=== PATIENT | female | born 1980 | race Caucasian/White ===

== ENCOUNTER 2022-02-23 10:31 | Emergency (ER) | payer SELFPAY ==
[2022-02-23 10:37] VITALS: BP 135/89; PULSE 75; RESP 20; TEMP 36.8; O2SAT 99; BMI 48.2
--- NOTE | 2022-02-23 11:06 | USR_ITS ---
PROCEDURE INFORMATION: Exam: US Duplex Artery and Vein of the Abdominal and/or Reproductive Organs. Complete Ovaries Exam date and time: 02/23/2022 11:53 AM Age: 41 years old Clinical indication: Pain; Dysmenorrhea; Additional info: Heavy bleeding with left pelvic pain TECHNIQUE: Imaging protocol: Real-time duplex ultrasound scan of the arterial and venous flow with color Doppler flow and spectral waveform analysis with image documentation. Complete duplex exam focused on the ovaries. Duplex exam was added to evaluate for torsion and other vascular conditions. COMPARISON: No relevant prior studies available. FINDINGS: Right ovary/adnexa: Normal duplex of the ovary. Normal Doppler waveforms and color flow. Arterial and venous flow are normal. No evidence of ovarian torsion. Left ovary/adnexa: Normal duplex of the ovary. Normal Doppler waveforms and color flow. Arterial and venous flow are normal. No evidence of ovarian torsion. PROCEDURE INFORMATION: Exam: US Pelvis, Transvaginal Exam date and time: 02/23/2022 11:53 AM Age: 41 years old Clinical indication: Pain; Dysmenorrhea; Additional info: Heavy bleeding with left pelvic pain TECHNIQUE: Imaging protocol: Real-time transvaginal pelvic ultrasound with image documentation. Transvaginal imaging was used for better evaluation of the endometrium, adnexa, and/or cervix. COMPARISON: No relevant prior studies available. FINDINGS: Uterus: Endometrial stipe is thick and heterogeneous measuing 1.3 cm. Probable clots/debris in endrometrial canal. Myometrium is appropriate in appearance. Right ovary/adnexa: Normal. No mass. Normal ovarian blood flow. Left ovary/adnexa: Normal. No mass. Normal ovarian blood flow. Intraperitoneal space: No free fluid. US/US pelvic complete* [id number] IMPRESSION: Normal ovarian arterial and venous vascular flow. No evidence ovarian torsion. IMPRESSION: Endometrial stipe is thick and heterogeneous measuing 1.3 cm. Probable clots/debris in endrometrial canal.
--- NOTE | 2022-02-23 11:07 | W.ED.FEMALGU ---
HPI - Female Genitourinary General: Chief complaint: Vaginal Bleeding Stated complaint: abdominal pain / bleeding Time Seen by Provider: 02/23/22 10:47 Source: patient Mode of arrival: ambulatory Limitations: no limitations History of Present Illness: This patient presents to our emergency department because of heavy vaginal bleeding and pelvic pain and cramping. She states she has had a continuous or almost continuous menstrual period for approximately 3 weeks. She states that she was having some intermittent cramping with this menstrual period but over the past 48 to 72 hours she has had increasing amount of cramping and discomfort. She states that she has had irregular periods all her life but is never had any episode like this. She denies any history of to [facility]. 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 She has never had any extensive work-up for menorrhagia or metromenorrhagia. She states that she was seen by transportation planning technician last year who was considering a D&C but has not completed that process. She denies any history of pelvic surgeries, STDs etc. She is occasionally uses tobacco. She has had a prior cholecystectomy. She denies any other bleeding history, bleeding dyscrasias etc. She is normally in good health has had no fevers or chills nausea vomiting or diarrhea. Pertinent past history: prior miscarriages Quality of pain: cramping Consistency: intermittent and progressively worsening Vaginal bleeding: moderate Exacerbating factors: none Relieving factors: none Associated symptoms: Deny headache(s), nausea or syncope Date of Last Menstrual Period: 02/02/22 Review of Systems Const: Denies: fever(s), chills or body aches Eyes: Denies: change in vision or blurry vision ENMT: Denies: throat pain or odynophagia Card: Denies: chest pain, palpitations, irregular heart rhythm, edema, syncope or pre-syncope Resp: Denies: dyspnea, productive cough or non-productive cough GI: Denies: nausea, vomiting or diarrhea : Reports: vaginal bleeding and pelvic pain; Denies: dysuria or urinary frequency Musc: Denies: neck pain, back pain, extremity pain or extremity swelling Skin/Breast: Denies: rash, pruritus or erythema Neuro: Denies: headache(s), numbness in extremities or weakness in extremities Endo: Denies: polyuria or polydipsia Bo/Lymph: Denies: easy bruising or easy bleeding PFSH ED PFSH: Social History Smoking and tobacco status: current every day smoker Female Reproductive History: Date of last menstrual period: 02/02/22 Physical Exam Narrative: EXAM NARRATIVE: She is alert and cooperative and answers questions in a goal-directed fashion. Const: COMMON NORMALS: no acute distress, patient oriented x3 and alert NUTRITIONAL APPEARANCE: overweight HENMT: COMMON NORMALS: normocephalic, Normal nasal mucous membranes and turbinates present and moist oral mucous membranes HEAD & SCALP: normocephalic NOSE: Normal nasal mucous membranes and turbinates present Eye: COMMON NORMALS: Equal, round and reactive pupils present, EOMs intact bilaterally, conjunctivae normal and no scleral icterus CONJUNCTIVA: Yes conjunctivae normal PUPIL: Yes Equal, round and reactive pupils present Neck/C-Spine: COMMON NORMALS: full ROM, supple, no JVD and No carotid bruits Chest: COMMONS NORMALS: normal inspection of the chest Resp: COMMON NORMALS: normal respiratory effort, No use of accessory muscles and clear to auscultation bilaterally AUSCULTATION: clear to auscultation bilaterally Cardio: COMMON NORMALS: no JVD, regular rate, No murmurs present (Cardio) and Peripheral pulses 2+ throughout RATE: regular rate PERIPHERAL PULSES: Peripheral pulses 2+ throughout GI: COMMON NORMALS: Soft to palpation PALPATION: Yes Soft to palpation, No Guarding due to palpation present (GI), No Rebound tenderness present and Yes Other GI palpation findings present (Tenderness in the left lower pelvic region. None in the right. No rebound) : COMMON NORMALS: Yes no CVA tenderness BLADDER/KIDNEY EXAM: Yes no CVA tenderness Back/Pelvis: COMMON NORMALS: no CVA tenderness, thoracic and lumbar spine normal to inspection and no thoracic nor lumbar tenderness Extremity: COMMON NORMALS: normal to inspection, capillary refill normal, no joint enlargement and no calf tenderness Neuro: COMMON NORMALS: patient oriented x3, moves all extremities and no sensory deficits noted SENSORIUM/ORIENTATION: Yes alert Psych: COMMON NORMALS: mental status grossly normal Course Reevaluation(s): Reevaluation #1: Patient currently clinically stable. Laboratories and ultrasound are reassuring without any evidence of ongoing emergency pathology. Vital Signs: Vital signs: Vital Signs Temperature 98.2 F 02/23/22 10:37 Pulse Rate 75 02/23/22 10:37 Respiratory Rate 20 H 02/23/22 10:37 Blood Pressure 135/89 02/23/22 10:37 Pulse Oximetry 99 02/23/22 10:37 MDM - Female Medical Decision Making Patient with abnormal vaginal bleeding. We will go ahead and begin symptomatic treatment as she is clinically stable without any acute pathology at this time. We will start her on suppressive Provera and have her follow-up with her transportation planning technician. We also discussed return precautions. Stable at this time. Medical Records I reviewed the patient's medical records. Lab Data : 02/23/22 11:28 02/23/22 11:28 Radiology Impressions Pelvis Ultrasound 02/23/22 11:06 IMPRESSION: Normal ovarian arterial and venous vascular flow. No evidence ovarian torsion. IMPRESSION: Endometrial stipe is thick and heterogeneous measuing 1.3 cm. Probable clots/debris in endrometrial canal. Laboratory Results WBC 6.0 10^3/uL (4.0-10.0) 02/23/22 11:28 RBC 4.09 10^6/uL (4.1-5.3) L 02/23/22 11:28 Hgb 11.2 g/dL (11.5-15.3) L 02/23/22 11:28 Hct 35.1 % (37.0-47.0) L 02/23/22 11:28 MCV 85.8 fl (81-99) 02/23/22 11:28 MCH 27.4 pg (28.0-34.0) L 02/23/22 11:28 MCHC 31.9 g/dL (30.0-36.0) 02/23/22 11:28 RDW 15.5 % (12.1-15.1) H 02/23/22 11:28 Plt Count 235 10^3/cmm (130-400) 02/23/22 11:28 MPV 10.8 fL (7.4-10.4) H 02/23/22 11:28 Neut % (Auto) 63.7 % 02/23/22 11:28 Lymph % (Auto) 27.3 % 02/23/22 11:28 [place] % (Auto) 6.4 % 02/23/22 11:28 Eos % (Auto) 1.7 % 02/23/22 11:28 Baso % (Auto) 0.7 % 02/23/22 11:28 Neut # (Auto) 3.82 10^3/uL (1.8-7.7) 02/23/22 11: Lymph # (Auto) 1.6 10^3/uL (0.8-4.8) 02/23/22 11:28 [place] # (Auto) 0.4 10^3/uL (0.2-0.9) 02/23/22 11: Eos # (Auto) 0.1 10^3/uL (0.0-0.8) 02/23/22 11:28 Baso # (Auto) 0.0 10^3/uL (0.0-0.1) 02/23/22 11: Nucleated RBC % (auto) 0 % 02/23/22 11: Nucleated RBCs # 0.0 /100WBC 02/23/22 11:28 Sodium 136 mmol/L (136-145) 02/23/22 11:28 Potassium 4.4 mmol/L (3.5-5.1) 02/23/22 11:28 Chloride 103 mmol/L (98-107) 02/23/22 11:28 Carbon Dioxide 23 mmol/L (22-29) 02/23/22 11:28 Anion Gap 14.4 (5-19) 02/23/22 11:28 BUN 11 mg/dL (6-20) 02/23/22 11:28 Creatinine 0.5 mg/dL (0.5-0.9) 02/23/22 11:28 GFR Calculation 137.4 mL/min (90-130) H 02/23/22 11:28 Glucose 104 mg/dL (65-115) 02/23/22 11:28 Calculated Osmolality 282 mOsm/kg (285-295) L 02/23/22 11:28 Calcium 9.1 mg/dL (8.5-10.5) 02/23/22 11:28 HCG, Qual Negative (Negative) 02/23/22 11:28 Imaging Data US: Radiologist's impression: No evidence of ovarian torsion. There is endometrial stripe is noted. See full report Discharge Plan Discharge Patient Disposition: Home Clinical Impression: Dysfunctional uterine bleeding Condition: Stable Prescriptions: New medroxyprogesterone [Provera] 10 mg tablet 10 mg PO DAILY 14 Days Qty: 14 0RF Rx Instructions: begin day 1 of cycle ketorolac 10 mg tablet 10 mg PO BID 5 Days Qty: 10 0RF No Action azithromycin 250 mg tablet See Rx Instructions PO .COMPLEX Qty: 6 0RF Rx Instructions: take 500 mg today (day 1), then 250 mg for 4 days (days 2-5) PO Discharge Orders: Discharge ED (Routine); Ordered 02/23/22 Ordered By: Andrew Hanna Discharge Diet: Usual diet Discharge Activity: Resume usual activity and Increase activity as tolerated Patient Instructions: Opioid Safety Activity Restrictions/Additional Instructions: Take the medications we have prescribed. Call your transportation planning technician on Friday to arrange a follow-up within the next 2 weeks. If you have increasing bleeding, any concerns at any time you may return to this emergency department for reevaluation. Coding Level of Care Code ED Web Design Specialist for Rolanda F[facility] Exam Comprehensive
[2022-02-23 11:41] LABS: Basophils % 0.7 %; Eosinophils # 0.1 10^3/uL (0.0-0.8); Eosinophils % 1.7 %; Hematocrit 35.1 % (37.0-47.0); Hemoglobin 11.2 g/dL (11.5-15.3); Lymphocytes # 1.6 10^3/uL (0.8-4.8); Lymphocytes % 27.3 %; Mean Corpuscular HGB Conc 31.9 g/dL (30.0-36.0); Mean Corpuscular Hemoglobin 27.4 pg (28.0-34.0); Mean Corpuscular Volume 85.8 fl (81-99); Mean Platelet Volume 10.8 fL (7.4-10.4); Monocytes # 0.4 10^3/uL (0.2-0.9); Monocytes % 6.4 %; Neutrophils # 3.82 10^3/uL (1.8-7.7); Neutrophils % 63.7 %; Nucleated Red Blood Cells % 0 %; Platelet Count 235 10^3/cmm (130-400); Red Blood Count 4.09 10^6/uL (4.1-5.3); Red Cell Distribution Width 15.5 % (12.1-15.1)
[2022-02-23 11:43] LABS: HCG Qualitative Urine. Negative (Negative)
[2022-02-23 12:01] LABS: Anion Gap 14.4 (5-19); Blood Urea Nitrogen 11 mg/dL (6-20); Calcium 9.1 mg/dL (8.5-10.5); Carbon Dioxide 23 mmol/L (22-29); Chloride 103 mmol/L (98-107); Glomerular Filtration Rate 137.4 mL/min (90-130); Glucose 104 mg/dL (65-115); Osmolality Calculated 282 mOsm/kg (285-295); Potassium 4.4 mmol/L (3.5-5.1); Sodium 136 mmol/L (136-145)
[2022-02-23] MEDS: medroxyprogesterone 2.5 mg Tablet 10 MG PO (13:52)
== END 2022-02-23 14:03 | disposition home or self-care (01) ==
PROVIDERS: Emergency Provider Emergency Medicine
DX: N93.8 Other specified abnormal uterine and vaginal bleeding (principal); Z87.59 Personal history of other complications of pregnancy, childbirth and the puerperium; F17.200 Nicotine dependence, unspecified, uncomplicated
CPT/HCPCS: 76856; 80048; 81025; 85025; 99283